=== PATIENT | male | born 1990 | race Caucasian/White ===

== ENCOUNTER 2017-09-29 04:28 | Emergency (ER) | payer OTHER ==
[~2017-09-29] VITALS: Ht 182.9 cm; Wt 72.6 kg
[2017-09-29 04:40] VITALS: BP_SYST 157
[2017-09-29 05:20] VITALS: BP_SYST 129
== END 2017-09-29 05:20 | disposition home or self-care (01) ==
LOC: SED 04:28
DX: J32.9 Chronic sinusitis, unspecified (principal)
CPT/HCPCS: 99283